=== PATIENT | male | born 1995 | race Caucasian/White ===

== ENCOUNTER 2018-08-21 16:46 | Emergency (ER) | payer OTHER ==
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
--- NOTE | 2018-08-21 19:23 | RAD ---
THORACIC SPINE: 08/21/18 Total of five views. HISTORY: Back pain. Thoracic vertebrae maintain height and alignment. No compression deformity. No lytic or blastic proce ss. IMPRESSION: Unremarkable thoracic spine. POS: [facility]
== END 2018-08-21 18:11 | disposition home or self-care (01) ==
LOC: SCSER 16:46
DX: M54.5 Low back pain (principal); V89.2XXA Person injured in unspecified motor-vehicle accident, traffic, initial encounter
CPT/HCPCS: 72072; 72110